=== PATIENT | male | born 1945 | race Two or more races ===

== ENCOUNTER 2017-08-20 13:44 | Inpatient (IN) | payer OTHER, MEDICARE ==
[~2017-08-20] VITALS: Ht 170.2 cm; Wt 93.3 kg
[2017-08-20] MEDS ORDERED: METHOCARBAMOL 750 MG TABLET PO ONE (14:30)
[2017-08-20] MEDS ORDERED: ONDANSETRON ODT 4 MG PO ONE (14:30)
[2017-08-20] MEDS ORDERED: SODIUM CHLORIDE FLUSH 10ML SYR IVF ONE (14:30)
[2017-08-20] MEDS ORDERED: METHOCARBAMOL 750 MG TABLET ONE (14:41)
[2017-08-20] MEDS ORDERED: MORPHINE SULFATE 4 MG/ML, 1ML ONE ×2 (14:41→18:20)
[2017-08-20] MEDS ORDERED: ONDANSETRON ODT 4 MG ONE (14:41)
[2017-08-20] MEDS: MORPHINE SULFATE 4 MG/ML, 1ML IVPush PRN ×2 (14:49→18:25)
[2017-08-20 14:58] LABS: BASOPHILS # (AUTO) 0.03 x10^3/uL (0-0.1); BASOPHILS % (AUTO) 0 % (0-1); EOSINOPHILS % (AUTO) 1 % (1-7); LYMPHOCYTES % (AUTO) 22 % (22-44); MD NO; MEAN CORPUSCULAR HEMOGLOBIN 30.5 pg (27.5-34.5); MEAN CORPUSCULAR HGB CONC 34.6 g/dL (33.2-36.2); MONOCYTES # (AUTO) 0.56 x10^3/uL (0.2-0.8); MONOCYTES % (AUTO) 7 % (2-9); NEUTROPHILS # (AUTO) 5.71 x10^3/uL (1.8-6.8); NEUTROPHILS % (AUTO) 70 % (42-75); PLATELET COUNT 178 x10^3/uL (130-400); RED BLOOD COUNT 5.58 x10^6/uL (4.38-5.82); RED CELL DISTRIBUTION WIDTH 14.1 % (9.4-14.8)
[2017-08-20 15:10] LABS: ALANINE AMINOTRANSFERASE 31 U/L (12-78); ALBUMIN 3.5 g/dL (3.4-5.0); ANION GAP 5 mmol/L (5-15); CALCIUM 8.7 mg/dL (8.5-10.1); CHLORIDE 100 mmol/L (98-107); CREATININE 2.26 mg/dL (0.7-1.3)
[2017-08-20 15:12] LABS: ALKALINE PHOSPHATASE 100 U/L (45-117); BILIRUBIN,TOTAL 0.7 mg/dL (0.2-1.0); TOTAL PROTEIN 7.3 g/dL (6.4-8.2)
[2017-08-20 15:48] LABS: MICROSCOPIC AUTO
[2017-08-20 15:54] LABS: CULTURE INDICATED? NO
[2017-08-20] MEDS ORDERED: morphine SULFATE 10 MG/ML, 1ML IVPush PRN (18:00)
[2017-08-20] MEDS ORDERED: hydrALAzine 20 MG/ML, 1ML IVPush PRN (18:00)
[2017-08-20] MEDS ORDERED: SODIUM CHLORIDE FLUSH 10ML SYR IVF PRN (18:00)
[2017-08-20] MEDS ORDERED: ONDANSETRON 2MG/ML, 2ML IVPush PRN (18:00)
[2017-08-20] MEDS: METHOCARBAMOL 1,000 MG in DEXTROSE 5% 100 ML IV PRN (18:15)
[2017-08-20 18:55] VITALS: BP 144/98
[2017-08-20] MEDS: HEPARIN 5,000 UNITS/ML, 1ML SQ SCH (22:33)
[2017-08-20] MEDS: NS + 20MEQ KCL 1,000 ML IV SCH (22:33)
[2017-08-20] MEDS: MAGNESIUM CITRATE 300ML ORAL SOL PO PRN (22:37)
[2017-08-21 01:15] VITALS: BP 127/88
[2017-08-21 04:53] LABS: CREATININE,URINE RANDOM 98.3 mg/dL
[2017-08-21 05:32] LABS: BASOPHILS # (AUTO) 0.05 x10^3/uL (0-0.1); BASOPHILS % (AUTO) 1 % (0-1); EOSINOPHILS # (AUTO) 0.19 x10^3/uL (0-0.4); EOSINOPHILS % (AUTO) 3 % (1-7); LYMPHOCYTES # (AUTO) 1.59 x10^3/uL (1-3.4); LYMPHOCYTES % (AUTO) 22 % (22-44); MD NO; MEAN CORPUSCULAR HEMOGLOBIN 30.2 pg (27.5-34.5); MEAN CORPUSCULAR HGB CONC 34.3 g/dL (33.2-36.2); MEAN CORPUSCULAR VOLUME 87.9 fL (81-97); MEAN PLATELET VOLUME 7.4 fL (7.4-10.4); MONOCYTES # (AUTO) 0.55 x10^3/uL (0.2-0.8); MONOCYTES % (AUTO) 8 % (2-9); NEUTROPHILS # (AUTO) 4.91 x10^3/uL (1.8-6.8); NEUTROPHILS % (AUTO) 67 % (42-75); PLATELET COUNT 158 x10^3/uL (130-400); RED BLOOD COUNT 5.09 x10^6/uL (4.38-5.82); RED CELL DISTRIBUTION WIDTH 13.9 % (9.4-14.8)
[2017-08-21] MEDS: HEPARIN 5,000 UNITS/ML, 1ML SQ SCH ×3 (06:15→22:26)
[2017-08-21 06:48] LABS: ANION GAP 12 mmol/L (5-15); CALCIUM 8.8 mg/dL (8.5-10.1); CHLORIDE 104 mmol/L (98-107); CREATININE 2.14 mg/dL (0.7-1.3)
[2017-08-21] MEDS: POTASSIUM CHLORIDE 20 MEQ TAB.ER.PRT PO SCH ×2 (09:09→12:58)
[2017-08-21] MEDS: ACETAMINOPHEN 325 MG TABLET PO PRN ×2 (09:09→16:36)
[2017-08-21 09:20] VITALS: BP 131/85
[2017-08-21] MEDS: METHOCARBAMOL 1,000 MG in DEXTROSE 5% 100 ML IV PRN (13:10)
[2017-08-21 15:18] VITALS: BP 118/78
[2017-08-21] MEDS: NS + 20MEQ KCL 1,000 ML IV SCH (16:27)
[2017-08-21 19:45] VITALS: BP 117/72
[2017-08-22 00:48] VITALS: BP 145/98
[2017-08-22] MEDS: HEPARIN 5,000 UNITS/ML, 1ML SQ SCH ×3 (05:38→22:09)
[2017-08-22 06:03] LABS: ALBUMIN 3.2 g/dL (3.4-5.0); ANION GAP 8 mmol/L (5-15); CALCIUM 8.2 mg/dL (8.5-10.1); CHLORIDE 104 mmol/L (98-107)
[2017-08-22 06:06] LABS: ALANINE AMINOTRANSFERASE 30 U/L (12-78); ALKALINE PHOSPHATASE 97 U/L (45-117); BILIRUBIN,TOTAL 0.8 mg/dL (0.2-1.0); CREATININE 2.08 mg/dL (0.7-1.3); TOTAL PROTEIN 6.5 g/dL (6.4-8.2)
[2017-08-22 06:07] LABS: BASOPHILS # (AUTO) 0.03 x10^3/uL (0-0.1); BASOPHILS % (AUTO) 0 % (0-1); EOSINOPHILS # (AUTO) 0.19 x10^3/uL (0-0.4); EOSINOPHILS % (AUTO) 3 % (1-7); HEMOGLOBIN A1C 7.5 % (4.2-6.3); LYMPHOCYTES # (AUTO) 1.57 x10^3/uL (1-3.4); LYMPHOCYTES % (AUTO) 22 % (22-44); MD NO; MEAN CORPUSCULAR HEMOGLOBIN 30.3 pg (27.5-34.5); MEAN CORPUSCULAR HGB CONC 34.5 g/dL (33.2-36.2); MEAN CORPUSCULAR VOLUME 87.7 fL (81-97); MEAN PLATELET VOLUME 8.1 fL (7.4-10.4); MONOCYTES # (AUTO) 0.58 x10^3/uL (0.2-0.8); MONOCYTES % (AUTO) 8 % (2-9); NEUTROPHILS # (AUTO) 4.87 x10^3/uL (1.8-6.8); NEUTROPHILS % (AUTO) 67 % (42-75); PLATELET COUNT 148 x10^3/uL (130-400); RED BLOOD COUNT 5.09 x10^6/uL (4.38-5.82); RED CELL DISTRIBUTION WIDTH 13.5 % (9.4-14.8)
[2017-08-22 07:00] VITALS: BP 135/85
[2017-08-22] MEDS: METHOCARBAMOL 1,000 MG in DEXTROSE 5% 100 ML IV PRN (11:29)
[2017-08-22] MEDS: ACETAMINOPHEN 325 MG TABLET PO PRN ×3 (11:29→22:09)
[2017-08-22 13:23] VITALS: BP 137/88
[2017-08-22 19:13] VITALS: BP 128/76
[2017-08-22] MEDS: MAGNESIUM CITRATE 300ML ORAL SOL PO PRN (22:09)
[2017-08-23 01:17] VITALS: BP 154/97
[2017-08-23] MEDS: METHOCARBAMOL 1,000 MG in DEXTROSE 5% 100 ML IV PRN (01:44)
[2017-08-23 05:12] LABS: ANION GAP 10 mmol/L (5-15); CALCIUM 8.9 mg/dL (8.5-10.1); CHLORIDE 104 mmol/L (98-107)
[2017-08-23 05:14] LABS: CREATININE 2.25 mg/dL (0.7-1.3)
[2017-08-23] MEDS: HEPARIN 5,000 UNITS/ML, 1ML SQ SCH ×2 (06:06→14:00)
[2017-08-23] MEDS: ACETAMINOPHEN 325 MG TABLET PO PRN ×2 (06:14→10:42)
[2017-08-23 07:25] VITALS: BP 130/78
[2017-08-23] MEDS ORDERED: AZITHROMYCIN 500 MG in SODIUM CHLORIDE 0.9% 250 ML IV SCH (09:00)
[2017-08-23] MEDS ORDERED: TRAM-47 PO (15:22)
[2017-08-23] MEDS ORDERED: AZIT500T5 PO (15:22)
[2017-08-23] MEDS ORDERED: GLIM1TAB PO (15:29)
[2017-08-23 15:34] VITALS: BP 157/83
== END 2017-08-23 17:40 | disposition home or self-care (01) | DRG 551 ==
LOC: ED 17:52 → EDIP 17:53 → ED 18:12 → 3NE 18:35
PROVIDERS: ADMIT Hospitalist; ATTEND Hospitalist
DX: M54.5 Low back pain (principal); N17.0 Acute kidney failure with tubular necrosis; E87.1 Hypo-osmolality and hyponatremia; J98.11 Atelectasis; R10.9 Unspecified abdominal pain; N28.1 Cyst of kidney, acquired; E11.65 Type 2 diabetes mellitus with hyperglycemia; E87.6 Hypokalemia; I11.9 Hypertensive heart disease without heart failure; R11.2 Nausea with vomiting, unspecified; K59.00 Constipation, unspecified; M10.9 Gout, unspecified; Z72.0 Tobacco use; Z79.84 Long term (current) use of oral hypoglycemic drugs; Z82.49 Family history of ischemic heart disease and other diseases of the circulatory system
CPT/HCPCS: 36415; 71046; 80048; 80053; 81001; 82436; 82570; 83036; 83690; 84133; 84300; 85025; 93005; 96374; 96376; J0456; J1644; J3480; Q0162; J2800; J7050